=== PATIENT | male | born 1945 | race African-American/Black ===

== ENCOUNTER 2022-03-13 18:10 | Emergency (ER) | payer MEDICARE, OTHER ==
[~2022-03-13] VITALS: Ht 165.1 cm; Wt 65.8 kg
[2022-03-13] MEDS ORDERED: OLANZAPINE 10 MG VIAL IM ONE ×3 (18:11→18:50)
[2022-03-13] MEDS ORDERED: LORAZEPAM 2 MG/1 ML VIAL IM ONE ×2 (18:30→19:30)
[2022-03-13] MEDS ORDERED: LORAZEPAM 2 MG/1 ML VIAL ONE ×2 (18:50→19:29)
[2022-03-13] MEDS ORDERED: diphenhydrAMINE 50 MG/1 ML VIAL ONE (19:30)
[2022-03-13] MEDS ORDERED: diphenhydrAMINE 50 MG/1 ML VIAL IM ONE (19:30)
[2022-03-13] MEDS ORDERED: HALOPERIDOL LACTATE 5 MG/1 ML VIAL IM ONE (19:30)
[2022-03-13] MEDS ORDERED: HALOPERIDOL LACTATE 5 MG/1 ML VIAL ONE (19:31)
--- NOTE | 2022-03-13 20:00 | NUR ---
Informed nursing department supervisor the need for 1:1 sitter due to patient on a 5150 hold and on 4 point restraint.
[2022-03-13 20:14] LABS: HEMATOCRIT 38.8 % (36.7-47.1); MEAN CORPUSCULAR HEMOGLOBIN 26.8 uug (23.8-33.4); MEAN CORPUSCULAR VOLUME 83.8 fL (73.0-96.2); PLATELET COUNT (AUTO) 127 K/uL (152-348)
[2022-03-13 20:21] LABS: CARBON DIOXIDE 25 mmol/L (21-32); CHLORIDE 104 mmol/L (98-107); CREATININE 1.8 mg/dL (0.6-1.3); GLUCOSE 103 mg/dL (74-106); UREA NITROGEN, BLOOD 40 mg/dL (7-18)
[2022-03-13 20:26] LABS: ALANINE AMINOTRANSFERASE 11 U/L (16-63); ALKALINE PHOSPHATASE 65 U/L (50-136); ASPARTATE AMINOTRANSFERASE 28 U/L (15-37); BILIRUBIN,DIRECT 0.2 mg/dL (0.0-0.2); BILIRUBIN,TOTAL 0.8 mg/dL (0.2-1.0); TOTAL PROTEIN, SERUM 7.4 g/dL (6.4-8.2)
[2022-03-13 20:36] LABS: ACETAMINOPHEN < 2.0 ug/mL (10-30); ETHANOL < 3 MG/DL (0-0)
--- NOTE | 2022-03-13 21:00 | NUR ---
Patient sleeping with no distress noted. Restraint removed. Provided comfort and safety measures.
--- NOTE | 2022-03-13 21:50 | NUR ---
Chetan from PET TEAM here to eval patient.
--- NOTE | 2022-03-13 23:04 | NUR ---
Pt. in bed, eyes closed.
--- NOTE | 2022-03-14 00:41 | NUR ---
Chetan from PET TEAM called back and states Dr Contreras will eval patient in the AM and will be transported [facility].
[2022-03-14] MEDS ORDERED: OLANZAPINE 10 MG VIAL IM ONE ×4 (09:15→11:45)
--- NOTE | 2022-03-14 11:16 | NUR ---
DONNA faxed the patient's facesheet to Carolina (fax: [phone]) at [facility] and nurse, Victor Manuel gave report to NILAM Cano ([phone]).
[2022-03-14] MEDS ORDERED: LORAZEPAM 2 MG/1 ML VIAL IM ONE (11:30)
[2022-03-14] MEDS ORDERED: LORAZEPAM 2 MG/1 ML VIAL ONE (11:44)
--- NOTE | 2022-03-14 12:05 | NUR ---
PT IS GOING TO BE TRANSFERED TO [facility] [address] [place], [address]. ROOM #[id number] VIA BLS AMBULANCE , ETA IS 1 HOUR. REPORT WAS GIVEN TO [facility] NILAM VALVERDE ([phone]).
--- NOTE | 2022-03-14 13:39 | NUR ---
PT WAS TRANSFERED TO [facility] VIA BLS AMBULANCE. NO S/S OF DISTRESS AT THE TIME OF TRABSFER. REPORT WAS GIVEN TO AMBULANCE EMT.
== END 2022-03-14 13:48 ==
LOC: ER 18:10
DX: F20.9 Schizophrenia, unspecified (principal); F03.911 Unspecified dementia, unspecified severity, with agitation; Z20.822 Contact with and (suspected) exposure to COVID-19
CPT/HCPCS: 87081; 80076; 80048; 85025; 87426; 36415; 99291; 96372 ×3; 80299; 80320; J1200; J1630; J2060 ×3; A4663; G0480; J2358